=== PATIENT | male | born 1935 | race Hispanic/Latino ===

== ENCOUNTER 2018-11-24 12:03 | Emergency (ER) | payer MEDICARE, OTHER ==
[~2018-11-24] VITALS: Ht 165.1 cm; Wt 68.0 kg
[~2018-11-24 12:03] MED LIST: ASPIRIN325 MG PO; ASPIRIN81 MG PO; CLOPIDOGREL75 MG PO; FERROUS SULFAT325 MG PO; FINASTERIDE PO; FINASTERIDE5 MG PO; LISINOPRIL PO; LISINOPRIL10 MG PO; LORTAB 7.5-5001 EACH PO; LOVASTATIN PO; LOVASTATIN40 MG PO; METFORMIN HCL500 MG PO; METOPROLOL SUCC25 MG PO; METOPROLOL TART25 MG PO; NITROGLYCERIN0.4 MG SL; OMEPRAZOLE40 MG PO; PRAVASTATIN SOD40 MG PO; TAMSULOSIN HCL0.4 MG PO; TAMSULOSIN PO; ULTRAM 50MG50 MG PO
--- OUTSIDE RECORDS SUMMARY | 2018-11-24 12:07 | XMS REPORT ---
Author Author [facility] Address Unknown Phone Unavailable Care Team Providers Care First Aid Trainer Name Role Phone Tamara FLORES Unavailable Unavailable Problems This patient has no known problems. Allergies, Adverse Reactions, Alerts This patient has no known allergies or adverse reactions. Medications This patient has no known medications. Results Test Description Test Time Test Comments Text Results Atomic Results Result Comments CHEST SINGLE (PORTABLE) [place] [address] Patient Name: NAVID MACIAS MR #: [id number] : 1935 Age/Sex: 82/M Req #: [id number] Adm Physician: Ordered by: DEANGELO FLORES MD Report #: [id number] Location: ER Room/Bed: Procedure: [id number] DX/CHEST SINGLE (PORTABLE) Exam Date: 10/04/17 Exam Time: 1340 REPORT STATUS: Signed PROCEDURE: A single AP view of the chest. COMPARISON: [facility], DX, CHEST SINGLE (PORTABLE), 04/24/2017, 19:00. INDICATIONS: GENERALIZED WEAKNESS FINDINGS: Lines/tubes: None. Lungs: The lungs are well inflated. Stable 3 mm nodular density projecting over the posterior lateral aspect of the right sixth rib. There is no evidence of opacity, consolidation or pulmonary edema. Pleura: There is no pleural effusion or pneumothorax. Heart and mediastinum: Cardiac silhouette is unremarkable. Pulmonary vasculature is normal. Tortuous aorta. Bones: No acute bony abnormality. Degenerative changes in the right glenohumeral joint and bilateral acromioclavicular joints. Degenerative disc changes in the thoracic spine. IMPRESSION: 1. No acute c ardiopulmonary abnormalities. Radha Rodarte M.D. Dictated by: Radha Rodarte M.D. on 10/04/2017 at 14:26 Electronically approved by: Radha Rodarte M.D. on 10/04/2017 at 14:26 Dictated By: RADHA RODARTE MD [id number] Transcribed By: PUNEET on 10/04/17 142 COPY TO: DEANGELO FLORES MD
[2018-11-24] MEDS ORDERED: LIDOCAINE 2% /EPINEPHRINE 20 ML SDV INJ ONE (12:15)
[2018-11-24] MEDS ORDERED: TETANUS/DIPHTHERIA TOX ADULT 0.5 ML SYR IM ONE (12:15)
[2018-11-24] MEDS ORDERED: TRAMADOL HCL 50 MG TAB PO ONE (12:30)
--- NOTE | 2018-11-24 12:50 | NUR ---
DRY DRSG EARLIER TO UPPER LIP; STILL DRY; TO CT VIA WC WITH TECH; PT ACTIVE AND ALERT
--- NOTE | 2018-11-24 14:30 | NUR ---
SUTURING COMPLETE BY HERACLIO AL. WOUND AND FACE CLEANED WITH NS. SURGICEL TO THE WOUND ON THE ESTABLISHED CLOT AND GAUZE TAPED IN PLACE WITH A SMALL AMOUNT OF BENZOIN TO EACH CHEEK. DAUGHTER GIVEN INSTRUCTIONS ABOUT CHANGING THE DRESSING.
--- NOTE | 2018-11-24 15:30 | NUR ---
STILL WAITING FOR CT REPORT; TROUBLE WITH GETTING THE REPORT ON PAX; PT AND FAMILY EXPLAINED; HERACLIO CHAVEZ SPEAKING WITH [employer] [employer]IOLOGIST TO GET A VERBAL REPORT. PT ANXIOUS TO GO HE 'DID NOT EAT BREAKFAST'; GIVEN WATER, JUICE AND COFFEE. NO BLEEDING ON DRSG. DAUGHTER ANXIOUS TO GO; GIVEN VERBAL ENCOUARGEMENT THAT WE WERE ALMOST DONE.
--- NOTE | 2018-11-24 16:33 | Diagnostic Imaging Report ---
History: Fall, pain Comparison studies:None Technique: Axial images were obtained from the brain, face and cervical spine. Coronal and sagittal reconstructions obtained from the axial data. Intravenous contrast: None Dose modulation, iterative reconstruction, and/or weight based adjustment of the mA/kV was utilized to reduce the radiation dose to as low as reasonably achievable. Findings: Head CT: Scalp/skull: No abnormalities. No fractures, blastic or lytic lesions. Extra-axial spaces: No masses. No fluid collections. Brain sulci: Appropriate for age. Ventricles: Normal in size and configuration. No hydrocephalus. Parenchyma: Few hypodensities of the periventricular and the white matter. 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 No masses, hemorrhage, acute or chronic cortical vascular insults. Sellar/suprasellar region: No abnormalities Craniocervical junction: Patent foramen magnum. No Chiari one malformation. Atherosclerotic calcifications of the carotid siphons. Maxillofacial CT: Soft tissues: Soft tissue swelling of the nasal bridge and left premandibular soft tissues. Bones: Bilateral nasal bone fractures.. Orbits: No abnormalities. Paranasal sinuses: Mucoperiosteal thickening at the right maxillary sinus aeration. Cervical spine CT: Fractures: None. Soft tissues: No gross abnormalities. Atlantoaxial articulation: Thickening and calcification of the tentorial membrane results in mild canal stenosis. No acute abnormality.. Alignment: Normal lordosis. No scoliosis. Cervicomedullary junction: No abnormalities. The foramen magnum is patent. Vertebrae: No infection or neoplasm. Sclerotic focus at the anterior aspect of C4 vertebral body, nonspecific. Degenerative changes: At C2-3, left uncinate process and facet hypertrophy results in moderate left foraminal narrowing. At C3-4, bilateral uncinate process hypertrophy and facet hypertrophy results in mild canal stenosis and moderate bilateral foraminal narrowing. At C4-5, bilateral uncinate process hypertrophy and facet hypertrophy results in mild bilateral foraminal narrowing. At C5-6, bilateral facet hypertrophy and right uncinate process hypertrophy results in moderate right and mild left foraminal narrowing. At C6-7, obliterated intervertebral space. Bilateral uncinate process and facet hypertrophy results in mild bilateral foraminal narrowing. Incidental findings: None. Impression: Head CT: 1. No acute intracranial abnormalities.. 2. Mild chronic microvascular ischemic changes of the white matter. 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 Facial CT: 1. Age indeterminant nasal bone fractures. No other fractures are seen. 2. Soft tissue swelling at the left premandibular soft tissues and nasal bridge. 3. Chronic right maxillary sinusitis.. Cervical spine CT: 1. No acute cervical abnormalities. Degenerative changes as described above 2. Cannot exclude ligament, spinal cord and or vascular abnormalities on the basis of this examination. Signed by: DR Nabeel Jarvis M.D. on 11/24/2018 2:15 PM
== END 2018-11-24 15:55 | disposition home or self-care (01) ==
LOC: ER 12:03
DX: S01.511A Laceration without foreign body of lip, initial encounter (principal); S00.83XA Contusion of other part of head, initial encounter; W01.0XXA Fall on same level from slipping, tripping and stumbling without subsequent striking against object, initial encounter; Y92.008 Other place in unspecified non-institutional (private) residence as the place of occurrence of the external cause; I10 Essential (primary) hypertension; E11.9 Type 2 diabetes mellitus without complications; D64.9 Anemia, unspecified; Z89.212 Acquired absence of left upper limb below elbow; Z95.5 Presence of coronary angioplasty implant and graft
CPT/HCPCS: 12011; 70450; 70486; 72125; 90471; 90714; 99283; J2001

== ENCOUNTER 2020-09-08 20:14 | Emergency (ER) | payer MEDICARE, OTHER ==
[~2020-09-08] VITALS: Ht 165.1 cm; Wt 68.0 kg
[2020-09-08] MEDS ORDERED: LIDOCAINE 1% W/EPINEPHRINE 20 ML VIAL ONE (20:34)
[2020-09-08] MEDS ORDERED: LIDOCAINE 1% W/EPINEPHRINE 20 ML VIAL INJ ONE (21:00)
[2020-09-08 21:16] LABS: BASOPHILS # (AUTO) 0.1 (0.0-0.1); BASOPHILS % 0.6 % (0.0-1.0); EOSINOPHILS # (AUTO) 0.3 (0.0-0.4); EOSINOPHILS % 3.8 % (0.0-6.0); HEMATOCRIT 41.6 % (38.2-49.6); HEMOGLOBIN 13.5 g/dL (14.0-18.0); LYMPHOCYTES # (AUTO) 2.9 (1.0-3.2); LYMPHOCYTES % 33.6 % (18.0-39.1); MEAN CORPUSCULAR HEMOGLOBIN 28.1 pg (28-32); MEAN CORPUSCULAR HGB CONC 32.5 g/dL (31-35); MEAN CORPUSCULAR VOLUME 86.5 fL (81-99); MONOCYTES % 11.3 % (4.4-11.3); NEUTROPHILS # (AUTO) 4.4 (2.1-6.9); NEUTROPHILS % 50.4 % (38.7-80.0); PLATELET COUNT 229 x10e3/uL (140-360); RED BLOOD COUNT 4.81 x10e6/uL (4.3-5.7); RED CELL DISTRIBUTION WIDTH 14.6 % (11.7-14.4)
--- NOTE | 2020-09-08 21:54 | Diagnostic Imaging Report ---
History:Fall Comparison studies: None Technique: Axial images were obtained from the skull base to the vertex. Coronal and sagittal images reconstructed from the axial data. Dose modulation, iterative reconstruction, and/or weight based adjustment of the mA/kV was utilized to reduce the radiation dose to as low as reasonably achievable. Intravenous contrast: None Findings: Scalp/skull: An acute midline parietal scalp hematoma at the vertex is not associated with subcutaneous emphysema or with hyperdense foreign bodies. No underlying fractures. Extra-axial spaces: No masses. No fluid collections. Brain sulci: Mildly prominent. Ventricles: Mild compensatory dilatation. No hydrocephalus. Parenchyma: A 4 mm hypodensity in the right inferolateral thalamus is a nonspecific age indeterminate lacunar insult. No masses, hemorrhage, acute or chronic cortical vascular insults. Sellar/suprasellar region: No abnormalities. Craniocervical junction: Patent foramen magnum. No Chiari one malformation. Incidental findings: Subtle calcifications in the carotid siphons . Impression: 1. Acute midline parietal scalp hematoma. 2. No fractures. 3. No acute intracranial abnormalities. 4. Age indeterminate 4 mm lacunar insult in the right inferolateral thalamus Signed by: Dr. Elmo Olvera M.D. on 09/08/2020 9:51 PM
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
[2020-09-08 22:55] VITALS: BP 118/71
== END 2020-09-08 23:13 | disposition home or self-care (01) ==
LOC: ER 21:51
DX: S01.01XA Laceration without foreign body of scalp, initial encounter (principal); W01.198A Fall on same level from slipping, tripping and stumbling with subsequent striking against other object, initial encounter; Y93.01 Activity, walking, marching and hiking; Y92.39 Other specified sports and athletic area as the place of occurrence of the external cause
CPT/HCPCS: 36415; 70450; 85025; 99284

== ENCOUNTER 2021-06-11 06:04 | Emergency (ER) | payer MEDICARE, OTHER ==
[~2021-06-11] VITALS: Ht 165.1 cm; Wt 68.0 kg
[2021-06-11] MEDS ORDERED: CASIRIVIMAB/IMDEVIMAB 600 MG INJ IV ONE (06:45)
[2021-06-11] MEDS ORDERED: CASIRIVIMAB/IMDEVIMAB 600 MG in SODIUM CHLORIDE 0.9% 100 ML IV ONE (07:00)
== END 2021-06-11 08:27 | disposition home or self-care (01) ==
LOC: ER 06:11
DX: R05 Cough (principal); U07.1 COVID-19; R53.1 Weakness; R10.13 Epigastric pain; I10 Essential (primary) hypertension; E11.9 Type 2 diabetes mellitus without complications; E78.5 Hyperlipidemia, unspecified; D64.9 Anemia, unspecified; Z95.5 Presence of coronary angioplasty implant and graft
CPT/HCPCS: 99284

== ENCOUNTER → 2021-11-06 | Emergency (ER) | payer SELFPAY ==
[~2021-11-06] VITALS: Ht 162.6 cm; Wt 68.0 kg
== END | disposition home or self-care (01) ==
LOC: ER 12:01
DX: E11.42 Type 2 diabetes mellitus with diabetic polyneuropathy (principal)
CPT/HCPCS: 99283

== ENCOUNTER 2024-04-30 11:42 | Inpatient (IN) | payer MEDICARE, OTHER ==
[~2024-04-30] VITALS: Ht 152.4 cm; Wt 74.8 kg
[2024-04-30 13:38] LABS: BASOPHILS % 0.3 % (0.0-1.0); EOSINOPHILS # (AUTO) 0.2 (0.0-0.4); HEMATOCRIT 40.6 % (38.2-49.6); HEMOGLOBIN 13.5 g/dL (14.0-18.0); LYMPHOCYTES # (AUTO) 2.9 (1.0-3.2); LYMPHOCYTES % 32.5 % (18.0-39.1); MEAN CORPUSCULAR HEMOGLOBIN 26.7 pg (28-32); MEAN CORPUSCULAR HGB CONC 33.3 g/dL (31-35); MEAN CORPUSCULAR VOLUME 80.2 fL (81-99); MONOCYTES # (AUTO) 0.8 (0.2-0.8); NEUTROPHILS # (AUTO) 4.9 (2.1-6.9); PLATELET COUNT 294 x10e3/uL (140-360); RED BLOOD COUNT 5.06 x10e6/uL (4.3-5.7); RED CELL DISTRIBUTION WIDTH 16.3 % (11.7-14.4); WHITE BLOOD COUNT 8.84 x10e3/uL (4.8-10.8)
[2024-04-30 13:56] LABS: INR 1.07; PROTHROMBIN TIME 14.6 seconds (11.9-14.5)
[2024-04-30 13:57] LABS: PARTIAL THROMBOPLASTIN TIME 29.5 seconds (23.8-35.5)
[2024-04-30 14:03] LABS: ALBUMIN 3.2 g/dL (3.5-5.0); ALBUMIN/GLOBULIN RATIO 0.7 (0.8-2.0); ANION GAP 14.9 mmol/L (8-16); BILIRUBIN,TOTAL 0.5 mg/dL (0.2-1.2); CALCIUM 9.3 mg/dL (8.4-10.2); CREATININE, SERUM 0.75 mg/dL (0.72-1.25); POTASSIUM 3.9 mmol/L (3.5-5.1); TOTAL PROTEIN 7.8 g/dL (6.5-8.1)
[2024-04-30 14:09] LABS: TROPONIN I 0.008 ng/mL (0-0.300)
[2024-04-30 15:00] LABS: BILIRUBIN,URINE NEGATIVE (NEGATIVE); CLARITY,URINE SL CLOUDY (CLEAR); COLOR,URINE YELLOW (YELLOW); GLUCOSE, URINE NEGATIVE (NEGATIVE); KETONES,URINE NEGATIVE (NEGATIVE); LEUKOCYTE ESTERASE ,URINE SMALL (NEGATIVE); NITRITE,URINE NEGATIVE (NEGATIVE); PH,URINE 7 (5 - 7); PROTEIN,URINE DIPSTICK NEGATIVE (NEGATIVE); URINE UROBILINOGEN 0.2 mg/dL (0.2 - 1)
[2024-04-30 15:13] LABS: AMORPHOUS SEDIMENT,URINE MODERATE (FEW); BACTERIA,URINE FEW /HPF
[2024-04-30 15:59] VITALS: TEMP 97.6
[2024-04-30] MEDS ORDERED: ONDANSETRON HCL INJ 2MG/ML 2ML 2 MG/ML VIAL IV PRN (16:30)
[2024-04-30 16:45] VITALS: PULSE 62; RESP 18
[2024-04-30 17:43] VITALS: BP 119/65; PULSE 70; RESP 19; TEMP 97.1; O2SAT 97
[2024-04-30 20:00] VITALS: BP 120/67; PULSE 73; RESP 18; TEMP 98.1; O2SAT 98
[2024-04-30] MEDS ORDERED: GLIPIZIDE ER2.5 MG PO (20:52)
[2024-04-30] MEDS ORDERED: ATORVASTATIN CA40 MG PO (20:52)
[2024-04-30] MEDS ORDERED: OXYBUTYNIN CHLOR5 MG PO (20:52)
[2024-04-30] MEDS ORDERED: METOCLOPRAMIDE10 MG PO (20:52)
[2024-05-01] VITALS: BP 120/68; PULSE 78; RESP 20; TEMP 98.3; O2SAT 100
[2024-05-01 02:28] LABS: TROPONIN I 0.012 ng/mL (0-0.300)
[2024-05-01 04:00] VITALS: BP 104/64; PULSE 70; RESP 18; TEMP 98.6; O2SAT 96
[2024-05-01 05:19] LABS: BASOPHILS % 0.3 % (0.0-1.0); EOSINOPHILS # (AUTO) 0.3 (0.0-0.4); EOSINOPHILS % 3.8 % (0.0-6.0); HEMATOCRIT 36.6 % (38.2-49.6); HEMOGLOBIN 11.8 g/dL (14.0-18.0); LYMPHOCYTES # (AUTO) 1.8 (1.0-3.2); LYMPHOCYTES % 24.2 % (18.0-39.1); MEAN CORPUSCULAR HEMOGLOBIN 26.3 pg (28-32); MEAN CORPUSCULAR HGB CONC 32.2 g/dL (31-35); MEAN CORPUSCULAR VOLUME 81.7 fL (81-99); MONOCYTES # (AUTO) 0.8 (0.2-0.8); MONOCYTES % 10.9 % (4.4-11.3); NEUTROPHILS # (AUTO) 4.6 (2.1-6.9); NEUTROPHILS % 60.5 % (38.7-80.0); PLATELET COUNT 278 x10e3/uL (140-360); RED BLOOD COUNT 4.48 x10e6/uL (4.3-5.7); WHITE BLOOD COUNT 7.59 x10e3/uL (4.8-10.8)
[2024-05-01 05:44] LABS: TROPONIN I 0.019 ng/mL (0-0.300)
[2024-05-01 05:47] LABS: ALBUMIN 2.7 g/dL (3.5-5.0); ALBUMIN/GLOBULIN RATIO 0.7 (0.8-2.0); ANION GAP 14.7 mmol/L (8-16); BILIRUBIN,TOTAL 0.6 mg/dL (0.2-1.2); CALCIUM 8.7 mg/dL (8.4-10.2); CHOL/HDL RATIO 3.3 (3.9-4.7); CREATININE, SERUM 0.68 mg/dL (0.72-1.25); POTASSIUM 3.7 mmol/L (3.5-5.1); TOTAL PROTEIN 6.7 g/dL (6.5-8.1)
[2024-05-01 08:15] VITALS: BP 92/56; PULSE 82; RESP 18; TEMP 97.7; O2SAT 95
[2024-05-01] MEDS: METOPROLOL SUCCINATE 25 MG TAB XL PO SCH (10:28)
[2024-05-01 12:15] VITALS: BP 104/63; PULSE 73; RESP 18; TEMP 97.3; O2SAT 97
[2024-05-01] MEDS: OXYBUTYNIN CHLORIDE 5 MG TAB PO SCH (14:21)
[2024-05-01 16:43] VITALS: BP 112/68; PULSE 77; RESP 18; TEMP 97.7; O2SAT 97
[2024-05-01 21:00] VITALS: BP 115/61; PULSE 76; RESP 18; TEMP 97.7; O2SAT 98
[2024-05-01] MEDS: ATORVASTATIN 40 MG TAB PO SCH (21:40)
[2024-05-02] VITALS: BP 115/62; PULSE 74; RESP 18; TEMP 97.6; O2SAT 97
[2024-05-02] MEDS: DEXTROSE 50% SYRINGE 50 ML IV ONE (06:14)
[2024-05-02] MEDS ORDERED: IOPAMIDOL 610MG/1ML 300 MG/ML VIAL IV ONE (07:46)
[2024-05-02 08:10] VITALS: BP 118/64; PULSE 79; RESP 18; TEMP 97.8; O2SAT 100
[2024-05-02] MEDS: ACETAMINOPHEN 325 MG TAB PO PRN (10:37)
[2024-05-02] MEDS: Morphine 4mg INJECTION 4 MG/ML INJ IV PRN (10:59)
[2024-05-02] MEDS ORDERED: SEVOFLURANE INHAL SOLN 250 ML PEN BTL ONE (12:47)
[2024-05-02] MEDS ORDERED: KETOROLAC TROMETHAMINE 30 MG/ML VIAL ONE (12:47)
[2024-05-02] MEDS ORDERED: ONDANSETRON HCL INJ 2MG/ML 2ML 2 MG/ML VIAL ONE (12:47)
[2024-05-02] MEDS ORDERED: LIDOCAINE HCL 2% LOCAL INJ 5 ML SDV VIAL INJ ONE (12:47)
[2024-05-02] MEDS ORDERED: EPHEDRINE SULFATE INJ 50 MG/ML VIAL ONE (12:47)
[2024-05-02] MEDS ORDERED: METOCLOPRAMIDE HCL 10 MG/2ML VIAL ONE (12:47)
[2024-05-02] MEDS ORDERED: DEXAMETHASONE SOD PHOS INJ 4 MG/ML SDV ONE (12:47)
[2024-05-02] MEDS ORDERED: PROPOFOL IV EMULSION 10 MG/ML 20 ML VIAL ONE (12:47)
[2024-05-02] MEDS: MAGNESIUM HYDROXIDE 30 ML UDC PO PRN (13:16)
[2024-05-02] MEDS: POLYETHYLENE GLYCOL 3350 17 GM PACK PO PRN (13:16)
[2024-05-02] MEDS ORDERED: FENTANYL CITRATE/PF 100MCG/2 ML INJ ONE (13:18)
[2024-05-02 17:32] VITALS: BP 149/64; PULSE 98; RESP 18; TEMP 98.2; O2SAT 97
[2024-05-02 20:00] VITALS: BP 114/73; PULSE 89; RESP 16; TEMP 97.4; O2SAT 99
[2024-05-03] VITALS (7 sets, daily range): BP systolic 107–121; BP diastolic 63–73; PULSE 73–89; RESP 16–20; TEMP 97.4–98.2; O2SAT 95–99
[2024-05-03] MEDS: SODIUM CHLORIDE 0.9% 250ML 250 ML ONE (05:52)
[2024-05-03] MEDS: TRAMADOL HCL 50 MG TAB PO PRN (06:22)
[2024-05-03 06:46] LABS: BASOPHILS % 0.1 % (0.0-1.0); EOSINOPHILS % 0.1 % (0.0-6.0); HEMATOCRIT 35.5 % (38.2-49.6); HEMOGLOBIN 11.8 g/dL (14.0-18.0); LYMPHOCYTES # (AUTO) 2.1 (1.0-3.2); LYMPHOCYTES % 14.5 % (18.0-39.1); MEAN CORPUSCULAR HEMOGLOBIN 26.8 pg (28-32); MEAN CORPUSCULAR HGB CONC 33.2 g/dL (31-35); MEAN CORPUSCULAR VOLUME 80.7 fL (81-99); MONOCYTES # (AUTO) 1.5 (0.2-0.8); MONOCYTES % 10.7 % (4.4-11.3); NEUTROPHILS # (AUTO) 10.5 (2.1-6.9); NEUTROPHILS % 74.2 % (38.7-80.0); PLATELET COUNT 288 x10e3/uL (140-360); WHITE BLOOD COUNT 14.24 x10e3/uL (4.8-10.8)
[2024-05-03 07:08] LABS: ANION GAP 15.4 mmol/L (8-16); CREATININE, SERUM 0.93 mg/dL (0.72-1.25); POTASSIUM 4.4 mmol/L (3.5-5.1)
[2024-05-03] MEDS ORDERED: BISACODYL 10 MG SUPP PR PRN (09:30)
[2024-05-03] MEDS ORDERED: BISACODYL 5 MG TAB EC PO PRN (09:30)
[2024-05-03] MEDS: BISACODYL 10 MG SUPP PR ONE (10:34)
[2024-05-03] MEDS: POLYETHYLENE GLYCOL 3350 17 GM PACK PO SCH (10:34)
[2024-05-03] MEDS: BISACODYL 5 MG TAB EC PO ONE (10:34)
[2024-05-03] MEDS: MAGNESIUM HYDROXIDE 30 ML UDC PO ONE (10:34)
[2024-05-03] MEDS ORDERED: ONDANSETRON HCL 4 MG ORAL DISINTEGRATING TAB PO PRN (15:15)
[2024-05-04 05:58] LABS: BASOPHILS % 0.2 % (0.0-1.0); EOSINOPHILS # (AUTO) 0.2 (0.0-0.4); EOSINOPHILS % 2.1 % (0.0-6.0); HEMATOCRIT 32.6 % (38.2-49.6); HEMOGLOBIN 10.3 g/dL (14.0-18.0); LYMPHOCYTES # (AUTO) 2.1 (1.0-3.2); LYMPHOCYTES % 26.5 % (18.0-39.1); MEAN CORPUSCULAR HEMOGLOBIN 26.2 pg (28-32); MEAN CORPUSCULAR HGB CONC 31.6 g/dL (31-35); MONOCYTES # (AUTO) 0.7 (0.2-0.8); MONOCYTES % 8.8 % (4.4-11.3); PLATELET COUNT 247 x10e3/uL (140-360); RED BLOOD COUNT 3.93 x10e6/uL (4.3-5.7); WHITE BLOOD COUNT 8.09 x10e3/uL (4.8-10.8)
[2024-05-04 06:31] LABS: ANION GAP 14.2 mmol/L (8-16); CALCIUM 8.5 mg/dL (8.4-10.2); CREATININE, SERUM 0.72 mg/dL (0.72-1.25); POTASSIUM 4.2 mmol/L (3.5-5.1)
[2024-05-04 07:56] VITALS: BP 120/71; PULSE 68; RESP 16; TEMP 97.9; O2SAT 100
[2024-05-04 09:05] VITALS: BP 120/71; PULSE 68; RESP 16; TEMP 97.9; O2SAT 100
[2024-05-04] MEDS: SODIUM CHLORIDE 0.9% 1000ML 1,000 ML IV SCH (11:27)
[2024-05-04 11:43] VITALS: BP 108/71; PULSE 84; RESP 17; TEMP 98.3; O2SAT 99
[2024-05-04 16:33] VITALS: BP 126/75; PULSE 71; RESP 18; TEMP 97.9; O2SAT 100
[2024-05-04 20:00] VITALS: BP 97/60; PULSE 81; RESP 17; TEMP 97.9; O2SAT 100
[2024-05-04 21:00] VITALS: BP 97/60; PULSE 81; RESP 17; TEMP 97.9; O2SAT 100
[2024-05-05] VITALS (7 sets, daily range): BP systolic 110–144; BP diastolic 65–76; PULSE 72–82; RESP 16–19; TEMP 96.9–97.9; O2SAT 95–99
[2024-05-05 05:32] LABS: BASOPHILS % 0.3 % (0.0-1.0); EOSINOPHILS # (AUTO) 0.2 (0.0-0.4); EOSINOPHILS % 2.8 % (0.0-6.0); HEMATOCRIT 29.6 % (38.2-49.6); HEMOGLOBIN 9.8 g/dL (14.0-18.0); LYMPHOCYTES % 28.2 % (18.0-39.1); MEAN CORPUSCULAR HEMOGLOBIN 26.8 pg (28-32); MEAN CORPUSCULAR HGB CONC 33.1 g/dL (31-35); MEAN CORPUSCULAR VOLUME 81.1 fL (81-99); MONOCYTES # (AUTO) 0.7 (0.2-0.8); MONOCYTES % 9.4 % (4.4-11.3); NEUTROPHILS # (AUTO) 4.2 (2.1-6.9); NEUTROPHILS % 59.2 % (38.7-80.0); PLATELET COUNT 186 x10e3/uL (140-360); RED BLOOD COUNT 3.65 x10e6/uL (4.3-5.7); RED CELL DISTRIBUTION WIDTH 17.2 % (11.7-14.4); WHITE BLOOD COUNT 7.02 x10e3/uL (4.8-10.8)
[2024-05-05 05:59] LABS: CALCIUM 8.1 mg/dL (8.4-10.2); CREATININE, SERUM 0.65 mg/dL (0.72-1.25)
[2024-05-05] MEDS ORDERED: ATENOLOL50 MG PO (15:36)
[2024-05-06] VITALS: BP 129/65; PULSE 77; RESP 17; TEMP 97.7; O2SAT 98
[2024-05-06 04:00] VITALS: BP 131/64; PULSE 76; RESP 17; TEMP 97.8; O2SAT 96
[2024-05-06 08:50] VITALS: BP 139/71; PULSE 74; RESP 16; TEMP 97.7; O2SAT 97
[2024-05-06 09:00] VITALS: BP 139/71; PULSE 74; RESP 16; TEMP 97.7; O2SAT 97
== END 2024-05-06 10:09 | disposition home health service (06) | DRG 699 ==
LOC: ER 12:04 → ERHOLD 16:34 → MED/SURG 17:57
PROVIDERS: ADMIT Internal Medicine; ATTEND Internal Medicine
PROC: 0T2BX0Z Change Drainage Device in Bladder, External Approach (ICD-10-PCS; 2024-05-02)
PROC: 0T7D8ZZ Dilation of Urethra, Via Natural or Artificial Opening Endoscopic (ICD-10-PCS; 2024-05-02)
PROC: BT161ZZ Fluoroscopy of Right Ureter using Low Osmolar Contrast (ICD-10-PCS; 2024-05-02)
PROC: BT171ZZ Fluoroscopy of Left Ureter using Low Osmolar Contrast (ICD-10-PCS; 2024-05-02)
PROC: 0TCB8ZZ Extirpation of Matter from Bladder, Via Natural or Artificial Opening Endoscopic (ICD-10-PCS; principal; 2024-05-02 08:42)
DX: T83.510A Infection and inflammatory reaction due to cystostomy catheter, initial encounter (principal); D62 Acute posthemorrhagic anemia; N13.8 Other obstructive and reflux uropathy; Z16.24 Resistance to multiple antibiotics; N39.0 Urinary tract infection, site not specified; Z93.50 Unspecified cystostomy status; E11.42 Type 2 diabetes mellitus with diabetic polyneuropathy; E11.51 Type 2 diabetes mellitus with diabetic peripheral angiopathy without gangrene; E11.22 Type 2 diabetes mellitus with diabetic chronic kidney disease; I12.9 Hypertensive chronic kidney disease with stage 1 through stage 4 chronic kidney disease, or unspecified chronic kidney disease; N18.9 Chronic kidney disease, unspecified; N40.1 Benign prostatic hyperplasia with lower urinary tract symptoms; N31.8 Other neuromuscular dysfunction of bladder; N21.0 Calculus in bladder; R31.0 Gross hematuria; I35.0 Nonrheumatic aortic (valve) stenosis; I25.10 Atherosclerotic heart disease of native coronary artery without angina pectoris; B96.4 Proteus (mirabilis) (morganii) as the cause of diseases classified elsewhere; E78.5 Hyperlipidemia, unspecified; E66.9 Obesity, unspecified; Z68.32 Body mass index [BMI] 32.0-32.9, adult; Y84.6 Urinary catheterization as the cause of abnormal reaction of the patient, or of later complication, without mention of misadventure at the time of the procedure; Z79.84 Long term (current) use of oral hypoglycemic drugs; Z79.02 Long term (current) use of antithrombotics/antiplatelets; Z95.5 Presence of coronary angioplasty implant and graft; I25.2 Old myocardial infarction; Z89.512 Acquired absence of left leg below knee; Z89.212 Acquired absence of left upper limb below elbow; Z86.73 Personal history of transient ischemic attack (TIA), and cerebral infarction without residual deficits; Z87.891 Personal history of nicotine dependence; Z99.3 Dependence on wheelchair; Z82.49 Family history of ischemic heart disease and other diseases of the circulatory system
CPT/HCPCS: 36415; 71250; 74176; 74420; 80048; 80053; 80061; 81001; 82550; 82948; 84484; 85025; 85610; 85730; 87086; 87186; 93005; 99252; 99284; C1758; J0692; J1100; J1885; J2001; J2270; J2405; J2543; J2765; J7030; J7050; J7799; U0002

== ENCOUNTER 2024-08-18 09:49 | Emergency (ER) | payer MEDICARE, OTHER ==
[~2024-08-18] VITALS: Ht 165.1 cm; Wt 74.8 kg
[~2024-08-18 09:49] MED LIST changes: +ATENOLOL50 MG PO; +ATORVASTATIN CA40 MG PO; +GLIPIZIDE ER2.5 MG PO; +METOCLOPRAMIDE10 MG PO; +OXYBUTYNIN CHLOR5 MG PO
[2024-08-18 09:59] VITALS: PULSE 85; RESP 17; TEMP 98.3; O2SAT 100
[2024-08-18 10:27] LABS: BASOPHILS % 0.5 % (0.0-1.0); EOSINOPHILS # (AUTO) 0.4 (0.0-0.4); EOSINOPHILS % 4.3 % (0.0-6.0); HEMATOCRIT 38.8 % (38.2-49.6); HEMOGLOBIN 11.9 g/dL (14.0-18.0); LYMPHOCYTES # (AUTO) 3.1 (1.0-3.2); LYMPHOCYTES % 35.1 % (18.0-39.1); MEAN CORPUSCULAR HEMOGLOBIN 24.2 pg (28-32); MEAN CORPUSCULAR HGB CONC 30.7 g/dL (31-35); MONOCYTES % 11.6 % (4.4-11.3); NEUTROPHILS # (AUTO) 4.3 (2.1-6.9); NEUTROPHILS % 48.4 % (38.7-80.0); PLATELET COUNT 386 x10e3/uL (140-360); RED BLOOD COUNT 4.91 x10e6/uL (4.3-5.7); RED CELL DISTRIBUTION WIDTH 17.8 % (11.7-14.4); WHITE BLOOD COUNT 8.86 x10e3/uL (4.8-10.8)
[2024-08-18 10:51] LABS: ALBUMIN 3.1 g/dL (3.5-5.0); ALBUMIN/GLOBULIN RATIO 0.6 (0.8-2.0); ANION GAP 14.9 mmol/L (8-16); BILIRUBIN,TOTAL 0.4 mg/dL (0.2-1.2); CALCIUM 9.5 mg/dL (8.4-10.2); CREATININE, SERUM 0.8 mg/dL (0.72-1.25); POTASSIUM 3.9 mmol/L (3.5-5.1); TOTAL PROTEIN 7.9 g/dL (6.5-8.1)
[2024-08-18 10:57] LABS: TROPONIN I 0.009 ng/mL (0-0.300)
[2024-08-18] MEDS ORDERED: NAPROXEN250 MG PO (11:17)
== END 2024-08-18 11:44 | disposition home or self-care (01) ==
LOC: ER 10:00
DX: R07.81 Pleurodynia (principal); E11.9 Type 2 diabetes mellitus without complications; E78.5 Hyperlipidemia, unspecified; D64.9 Anemia, unspecified; R94.31 Abnormal electrocardiogram [ECG] [EKG]; Z86.73 Personal history of transient ischemic attack (TIA), and cerebral infarction without residual deficits; I25.2 Old myocardial infarction; Z95.5 Presence of coronary angioplasty implant and graft; Z89.612 Acquired absence of left leg above knee
CPT/HCPCS: 36415; 71045; 80053; 84484; 85025; 93005; 99284